=== PATIENT | female | born 1960 | race Two or more races ===

== ENCOUNTER 2020-09-22 21:55 | Emergency (ER) | payer OTHER ==
[~2020-09-22] VITALS: Ht 165.1 cm; Wt 71.0 kg
[2020-09-22] MEDS ORDERED: normal saline 1000ml 1,000 ML IV ONE (23:20)
[2020-09-22] MEDS ORDERED: CefTRIAXone 2gm/D5W 50ml BAG 50 ML IV ONE (23:20)
[2020-09-22] MEDS: ketorolac trometh. 30mg/ml inj. IV ONE ×2 (23:35→23:57)
[2020-09-22 23:49] LABS: BASOPHILS % (AUTO) 0.6 % (0-1); EOSINOPHILS % (AUTO) 0.1 % (0-6); HEMATOCRIT 37.8 % (35.0-45.0); HEMOGLOBIN 13.1 g/dl (12.0-16.0); MEAN CORPUSCULAR HEMOGLOBIN 31.7 PG (27.0-31.0); MEAN CORPUSCULAR HGB CONC 34.7 g/dL (33.0-36.5); MEAN CORPUSCULAR VOLUME 91.3 FL (78-98); MEAN PLATELET VOLUME 9.4 FL (7.4-10.4); MONOCYTES # (AUTO) 0.6 X10'3 (0-0.9); MONOCYTES % (AUTO) 8.7 % (2-12); NEUTROPHILS # (AUTO) 5.6 X10'3 (1.8-7.7); NEUTROPHILS % (AUTO) 76.6 % (42-75); PLATELET COUNT 171 X10'3 (140-440); RED BLOOD COUNT 4.14 X10'6 (4.20-5.60); RED CELL DISTRIBUTION WIDTH 13.8 % (11.5-14.5); WHITE BLOOD COUNT 7.3 X10'3 (4.5-11.0)
[2020-09-23 00:03] LABS: ALANINE AMINOTRANSFERASE 31 U/L (12-78); ALBUMIN 3.2 G/DL (3.4-5.0); ALBUMIN/GLOBULIN RATIO 0.9 (1.1-1.5); ALKALINE PHOSPHATASE 94 IU/L (46-116); ANION GAP 9 (8-16); ASPARTATE AMINO TRANSFERASE 23 U/L (10-37); BILIRUBIN,TOTAL 0.2 MG/DL (0.1-1.0); BLOOD UREA NITROGEN 12 MG/DL (7-18); BUN/CREATININE RATIO 14.8 (6.6-38.0); CALCIUM 8.3 MG/DL (8.5-10.1); CHLORIDE 98 MMOL/L (99-107); CREATININE 0.81 MG/DL (0.40-0.90); GLUCOSE 107 MG/DL (70-104); MAGNESIUM 1.6 MG/DL (1.5-2.4); POTASSIUM 3.1 MMOL/L (3.5-5.1); SODIUM 132 MMOL/L (135-145); TOTAL PROTEIN 6.8 G/DL (6.4-8.2); eGFR 72 ML/MIN
[2020-09-23 00:17] LABS: URINE HCG NEGATIVE (NEG)
[2020-09-23 00:23] LABS: CLARITY,URINE CLEAR (Clear); COLOR,URINE YELLOW (Yellow); GLUCOSE, URINE NEGATIVE (Neg); KETONES,URINE NEGATIVE (Neg); LEUKOCYTE ESTERASE ,URINE NEGATIVE (Neg); NITRITES, URINE NEGATIVE (Neg); OCCULT BLOOD,URINE SMALL (Neg); PROTEIN,URINE NEGATIVE (Neg); UA COLLECTION TYPE NON-SPECIFIED; UROBILINOGEN,URINE 0.2 E.U/dL (0.2-1.0)
[2020-09-23] MEDS ORDERED: potassium Cl 20 mEq SR tablet PO STA (00:24)
[2020-09-23] MEDS ORDERED: ondansetron 4mg rapidly disintigrating tab PO ONE (00:25)
[2020-09-23 00:34] LABS: BACTERIA,URINE NONE SEEN /HPF (Neg); RBC,URINE 0-2 /HPF (0-2); SQUAMOUS EPITHELIAL CELL,UR FEW /LPF (FEW); WBC,URINE 0-4 /HPF (0-4)
[2020-09-23 00:38] LABS: URINE AMPHETAMINE SCREEN NEGATIVE (Neg); URINE BARBITUATE SCREEN NEGATIVE (Neg); URINE BENZODIAZEPINES SCREEN NEGATIVE (Neg); URINE CANNABINOID SCREEN NEGATIVE (Neg); URINE COCAINE SCREEN NEGATIVE (Neg); URINE METHADONE SCREEN NEGATIVE (Neg); URINE OPIATE SCREEN NEGATIVE (Neg); URINE PHENCYCLIDINE SCREEN NEGATIVE (Neg)
[2020-09-23 01:01] VITALS: BP 134/58
== END 2020-09-23 01:05 | disposition home or self-care (01) ==
LOC: ER 21:57
DX: M79.10 Myalgia, unspecified site (principal); R30.0 Dysuria; Z87.448 Personal history of other diseases of urinary system
CPT/HCPCS: 36415; 71045; 80053; 80305; 81001; 81025; 83605; 83735; 84145; 85025; 87040; 87635; 93005; 96365; 99285; J0696; J7030; J1885

== ENCOUNTER 2020-09-27 07:20 | Inpatient (IN) | payer OTHER ==
[~2020-09-27] VITALS: Ht 162.6 cm; Wt 61.0 kg
[2020-09-27 09:05] LABS: BASOPHILS % (AUTO) 0.5 % (0-1); EOSINOPHILS % (AUTO) 0 % (0-6); HEMATOCRIT 35.3 % (35.0-45.0); HEMOGLOBIN 12.4 g/dl (12.0-16.0); LYMPHOCYTES # (AUTO) 0.3 X10'3 (1.1-4.8); LYMPHOCYTES % (AUTO) 5.7 % (21-51); MEAN CORPUSCULAR HEMOGLOBIN 31.5 PG (27.0-31.0); MEAN CORPUSCULAR HGB CONC 35.1 g/dL (33.0-36.5); MEAN CORPUSCULAR VOLUME 89.7 FL (78-98); MEAN PLATELET VOLUME 9.4 FL (7.4-10.4); MONOCYTES # (AUTO) 0.2 X10'3 (0-0.9); MONOCYTES % (AUTO) 4.1 % (2-12); NEUTROPHILS # (AUTO) 4.6 X10'3 (1.8-7.7); NEUTROPHILS % (AUTO) 89.7 % (42-75); PLATELET COUNT 149 X10'3 (140-440); RED BLOOD COUNT 3.93 X10'6 (4.20-5.60); RED CELL DISTRIBUTION WIDTH 14.2 % (11.5-14.5); WHITE BLOOD COUNT 5.2 X10'3 (4.5-11.0)
[2020-09-27 09:14] LABS: D-DIMER 0.62 MG/L FEU (0-0.50)
[2020-09-27 09:18] LABS: ALANINE AMINOTRANSFERASE 31 U/L (12-78); ALBUMIN 2.6 G/DL (3.4-5.0); ALBUMIN/GLOBULIN RATIO 0.7 (1.1-1.5); ALKALINE PHOSPHATASE 83 IU/L (46-116); ANION GAP 10 (8-16); ASPARTATE AMINO TRANSFERASE 39 U/L (10-37); BILIRUBIN,TOTAL 0.3 MG/DL (0.1-1.0); BLOOD UREA NITROGEN 8 MG/DL (7-18); CALCIUM 8.3 MG/DL (8.5-10.1); CHLORIDE 102 MMOL/L (99-107); CREATININE 0.73 MG/DL (0.40-0.90); GLUCOSE 110 MG/DL (70-104); MAGNESIUM 1.5 MG/DL (1.5-2.4); POTASSIUM 3.2 MMOL/L (3.5-5.1); SODIUM 135 MMOL/L (135-145); TOTAL CARBON DIOXIDE 23.5 MMOL/L (24-32); TOTAL PROTEIN 6.3 G/DL (6.4-8.2); eGFR 82 ML/MIN
[2020-09-27] MEDS ORDERED: potassium Cl 20 mEq SR tablet PO STA (09:59)
[2020-09-27] MEDS ORDERED: ondansetron/PF 4mg/2ml inj IV ONE (10:20)
[2020-09-27] MEDS ORDERED: dexamethasone sod phosphate 10mg/ml inj IV STA (10:27)
[2020-09-27] MEDS ORDERED: magnesium 4gm in 100ml NS 100 ML IV PRN (10:40)
[2020-09-27] MEDS ORDERED: potassium Cl 20 mEq SR tablet PO PRN (10:40)
[2020-09-27] MEDS ORDERED: acetaminophen 325mg tablet PO ONE (10:40)
[2020-09-27] MEDS ORDERED: HYDROcodone/acetaminophen 5mg/325mg tablet PO PRN (10:40)
[2020-09-27] MEDS ORDERED: mag hydrox/Alum hydrox/simeth 30ml oral suspension PO PRN (10:40)
[2020-09-27] MEDS ORDERED: potassium CL 10mEq/100ml bag 100 ML IV PRN ×2 (10:40)
[2020-09-27] MEDS ORDERED: magnesium hydroxide 30ml (MOM) UD suspension PO PRN (10:40)
[2020-09-27] MEDS ORDERED: acetaminophen 325mg tablet PO PRN (10:40)
[2020-09-27] MEDS ORDERED: HYDROcodone/acetaminophen 10/325mg tab PO PRN (10:40)
[2020-09-27] MEDS ORDERED: magnesium 2GM in 50ml NS 50 ML IV PRN (10:40)
[2020-09-27] MEDS ORDERED: iohexol 350MG/ML 100ml bottle IV ONE (10:56)
[2020-09-27 11:19] LABS: C-REACTIVE PROTEIN 8.54 MG/DL (0.0-0.5); FERRITIN 690 NG/ML (8-252); LACTATE DEHYDROGENASE 391 U/L (81-234)
[2020-09-27] MEDS ORDERED: NO HOME MEDS (11:22)
[2020-09-27] MEDS: normal saline 1000ml 1,000 ML IV SCH ×2 (11:28→19:45)
--- NOTE | 2020-09-27 11:28 | NUR ---
BACK FROM CT
--- NOTE | 2020-09-27 12:49 | NUR ---
received report from TRI ponce. awaiting patient arrival.
[2020-09-27 13:33] VITALS: BP 114/95
[2020-09-27] MEDS ORDERED: azithromycin 250mg tablet PO ONE (15:00)
[2020-09-27] MEDS ORDERED: CefTRIAXone/D5W-Rocephin 1gm 50 ML IV ONE (15:00)
--- NOTE | 2020-09-27 16:28 | NUR ---
patient's skin is intact. no open areas noted. was not able to bring another RN into the room for my assessment. Addendum: 09/27/20 at 1631 by Luciana Blackburn RN Amended: Links added.
[2020-09-27] MEDS: ALBUTEROL INHALER 1 PUFF/90 MCG INHALER IH PRN ×2 (16:53→22:12)
[2020-09-27] MEDS: potassium Cl 20 mEq SR tablet PO PRN (17:24)
[2020-09-27] MEDS: ondansetron/PF 4mg/2ml inj IV PRN (17:29)
[2020-09-27 18:00] VITALS: BP 130/63
--- NOTE | 2020-09-27 18:38 | NUR ---
Patient in room [facility] 341. I have received report from HERB BARTLETT and had the opportunity to ask questions and assume patient care.
--- NOTE | 2020-09-27 18:39 | NUR ---
Problems reprioritized. Patient report given, questions answered & plan of care reviewed with TRI Carranza.
[2020-09-27] MEDS: enoxaparin 40mg/0.4ml syringe SQ SCH (19:44)
[2020-09-27] MEDS: K and/or MAG REPLACEMENT MC SCH (20:00)
[2020-09-27] MEDS: guaiFENesin ER 600mg tablet PO SCH (23:06)
[2020-09-27 23:11] VITALS: BP 127/64
[2020-09-28] MEDS: ondansetron/PF 4mg/2ml inj IV PRN ×3 (02:34→17:42)
[2020-09-28] MEDS: ALBUTEROL INHALER 1 PUFF/90 MCG INHALER IH PRN ×4 (02:39→23:45)
[2020-09-28] MEDS ORDERED: LORazepam 0.5 MG tablet PO PRN (03:10)
[2020-09-28 05:03] LABS: BASOPHILS % (AUTO) 0.2 % (0-1); EOSINOPHILS % (AUTO) 0 % (0-6); HEMATOCRIT 32.5 % (35.0-45.0); HEMOGLOBIN 11.1 g/dl (12.0-16.0); LYMPHOCYTES # (AUTO) 0.3 X10'3 (1.1-4.8); LYMPHOCYTES % (AUTO) 6.4 % (21-51); MEAN CORPUSCULAR HEMOGLOBIN 30.8 PG (27.0-31.0); MEAN CORPUSCULAR HGB CONC 34.3 g/dL (33.0-36.5); MEAN CORPUSCULAR VOLUME 89.8 FL (78-98); MEAN PLATELET VOLUME 9.9 FL (7.4-10.4); MONOCYTES # (AUTO) 0.5 X10'3 (0-0.9); MONOCYTES % (AUTO) 10.3 % (2-12); NEUTROPHILS # (AUTO) 4.4 X10'3 (1.8-7.7); NEUTROPHILS % (AUTO) 83.1 % (42-75); PLATELET COUNT 148 X10'3 (140-440); RED BLOOD COUNT 3.61 X10'6 (4.20-5.60); RED CELL DISTRIBUTION WIDTH 14.1 % (11.5-14.5); WHITE BLOOD COUNT 5.3 X10'3 (4.5-11.0)
[2020-09-28 05:15] LABS: D-DIMER 0.38 MG/L FEU (0-0.50)
[2020-09-28 05:23] LABS: ALANINE AMINOTRANSFERASE 31 U/L (12-78); ALBUMIN 2.4 G/DL (3.4-5.0); ALBUMIN/GLOBULIN RATIO 0.7 (1.1-1.5); ALKALINE PHOSPHATASE 73 IU/L (46-116); ANION GAP 10 (8-16); ASPARTATE AMINO TRANSFERASE 43 U/L (10-37); BILIRUBIN,TOTAL 0.2 MG/DL (0.1-1.0); BLOOD UREA NITROGEN 8 MG/DL (7-18); BUN/CREATININE RATIO 10.4 (6.6-38.0); C-REACTIVE PROTEIN 5.75 MG/DL (0.0-0.5); CALCIUM 7.9 MG/DL (8.5-10.1); CHLORIDE 106 MMOL/L (99-107); CREATININE 0.77 MG/DL (0.40-0.90); GLUCOSE 129 MG/DL (70-104); MAGNESIUM 1.7 MG/DL (1.5-2.4); POTASSIUM 3.2 MMOL/L (3.5-5.1); SODIUM 139 MMOL/L (135-145); TOTAL PROTEIN 5.9 G/DL (6.4-8.2); eGFR 77 ML/MIN
--- NOTE | 2020-09-28 06:13 | NUR ---
Problems reprioritized. Patient report given, questions answered & plan of care reviewed with RANDOLPH BARTLETT.
--- NOTE | 2020-09-28 06:13 | NUR ---
Patient in room [facility] 341. I have received report from TRI Carranza and had the opportunity to ask questions and assume patient care.
[2020-09-28 07:52] VITALS: BP 132/76
[2020-09-28] MEDS: potassium Cl 20 mEq SR tablet PO PRN ×3 (07:59→17:36)
[2020-09-28] MEDS: guaiFENesin ER 600mg tablet PO SCH ×2 (07:59→20:08)
[2020-09-28] MEDS: CefTRIAXone/D5W-Rocephin 1gm 50 ML IV SCH (08:00)
[2020-09-28] MEDS: K and/or MAG REPLACEMENT MC SCH ×2 (08:00→20:00)
[2020-09-28] MEDS: azithromycin 250mg tablet PO SCH (08:00)
[2020-09-28] MEDS ORDERED: dexamethasone 4mg tablet PO SCH (08:00)
[2020-09-28] MEDS: normal saline 1000ml 1,000 ML IV SCH ×3 (08:04→20:39)
--- NOTE | 2020-09-28 08:19 | NUR ---
Patient refusing to have side rails up. Explained to patient safety purposes of side rails being up. Patient refusing to have any side rails up, not allowing for one side rail either.
--- NOTE | 2020-09-28 08:24 | NUR ---
Patient stating "can someone help me breathe? I feel like I can't breathe." Patient lying with head of bed flat on left side lying position on RA. SPO2% was 88%. Educated patient having HOB elevated would be helpful and educated patient relaxation breathing technique as patient appears to be anxious. Patient refusing to have HOB slightly elevated but sat up straight in bed to do breathing exercises. 2LNC placed and patient doing breathing exercise. SPO2% 92-93 on 2LNC. Patient offered ativan but refuses at this time. Patient states, " I just need to sleep. I haven't been able to sleep so I get shaky." WIll continue to monitor.
--- NOTE | 2020-09-28 09:27 | NUR ---
Patient up in room ambulating with no oxygen on. 88% on RA. Reminded patient to have o2 on as she desaturates to 88% when it is not on. Patient asking for tubing extension for O2 and IV. Extension tubing for IV and O2 cannula on. Patient continues to have O2 on and off. Again educated patient use of O2 nasal cannula. Currently 2LNC 92%. Will continue to monitor.
[2020-09-28 10:19] VITALS: BP 126/56
--- NOTE | 2020-09-28 13:02 | NUR ---
Patient again seen without oxygen tubing in nares instead she has it hanging from her ears as she is in the corner of the room going through her belongings. Patient spo2 87-88% on RA and appears to be SOB. Reinforced education to patient about correct use of nasal cannula for proper oxygenation saturation. Patient on 3LNC saturating at 94-95%. Will continue to monitor.
[2020-09-28] MEDS: acetaminophen 325mg tablet PO SCH ×2 (14:00→20:09)
--- NOTE | 2020-09-28 18:25 | NUR ---
Problems reprioritized. Patient report given, questions answered & plan of care reviewed with TRI Prado.
--- NOTE | 2020-09-28 18:50 | NUR ---
Patient in room [facility] 341. I have received report from Eliza BARTLETT and had the opportunity to ask questions and assume patient care.
[2020-09-28] MEDS: lactobacillus rhamnosus 10,000 MMU CELLS/CAPSULE PO SCH (20:08)
[2020-09-28] MEDS: enoxaparin 40mg/0.4ml syringe SQ SCH (20:12)
[2020-09-28 20:15] VITALS: BP 139/84
[2020-09-28 23:46] VITALS: BP 148/75
--- NOTE | 2020-09-29 00:04 | NUR ---
Patient does not want the tray removed incase she will want to eat. Addendum: 09/29/20 at 0005 by Eve Krishnan RN Amended: Links added.
[2020-09-29] MEDS: acetaminophen 325mg tablet PO SCH ×5 (02:00→19:07)
[2020-09-29] MEDS: ondansetron/PF 4mg/2ml inj IV PRN (02:42)
--- NOTE | 2020-09-29 03:50 | NUR ---
Patient is extremely anxious and would benefit from taking ativan, however, she refuses. Patient has to be constantly reminded to keep the mask on over her nose and mouth. Pt. also has to be reminded to keep NC in her nares . Earlier in shift pt. did desat to 77% while OOB in bathroom with NC in not in her nares, but went back up to 91% when NC placed in nares and breathing slowed down focusing on in thru the nose, out thru the mouth. Patient c/o pain to her lungs at the back but will not take pain medication. PIV has just infiltrated and pt. refuses to allow a new one to be initiated at this time.
[2020-09-29 05:35] LABS: BASOPHILS % (AUTO) 0.1 % (0-1); EOSINOPHILS % (AUTO) 0 % (0-6); HEMATOCRIT 34.7 % (35.0-45.0); HEMOGLOBIN 11.8 g/dl (12.0-16.0); LYMPHOCYTES # (AUTO) 0.5 X10'3 (1.1-4.8); LYMPHOCYTES % (AUTO) 3.4 % (21-51); MEAN CORPUSCULAR HEMOGLOBIN 30.8 PG (27.0-31.0); MEAN CORPUSCULAR VOLUME 90.6 FL (78-98); MEAN PLATELET VOLUME 9.1 FL (7.4-10.4); MONOCYTES # (AUTO) 0.6 X10'3 (0-0.9); MONOCYTES % (AUTO) 4.7 % (2-12); NEUTROPHILS % (AUTO) 91.8 % (42-75); PLATELET COUNT 219 X10'3 (140-440); RED BLOOD COUNT 3.83 X10'6 (4.20-5.60); RED CELL DISTRIBUTION WIDTH 14.3 % (11.5-14.5); WHITE BLOOD COUNT 13.1 X10'3 (4.5-11.0)
[2020-09-29 05:39] LABS: D-DIMER 0.96 MG/L FEU (0-0.50)
[2020-09-29 05:47] LABS: ALANINE AMINOTRANSFERASE 46 U/L (12-78); ALBUMIN 2.5 G/DL (3.4-5.0); ALBUMIN/GLOBULIN RATIO 0.6 (1.1-1.5); ALKALINE PHOSPHATASE 86 IU/L (46-116); ANION GAP 10 (8-16); ASPARTATE AMINO TRANSFERASE 72 U/L (10-37); BILIRUBIN,TOTAL 0.5 MG/DL (0.1-1.0); BLOOD UREA NITROGEN 10 MG/DL (7-18); BUN/CREATININE RATIO 13.5 (6.6-38.0); C-REACTIVE PROTEIN 8.12 MG/DL (0.0-0.5); CALCIUM 8.3 MG/DL (8.5-10.1); CHLORIDE 106 MMOL/L (99-107); CREATININE 0.74 MG/DL (0.40-0.90); GLUCOSE 104 MG/DL (70-104); SODIUM 140 MMOL/L (135-145); TOTAL PROTEIN 6.4 G/DL (6.4-8.2); eGFR 80 ML/MIN
--- NOTE | 2020-09-29 06:33 | NUR ---
Patient in room [facility] 341. I have received report from Eve BARTLETT and had the opportunity to ask questions and assume patient care. Patient with NO IV.
--- NOTE | 2020-09-29 06:51 | NUR ---
Problems reprioritized. Patient report given, questions answered & plan of care reviewed with Katy BARTLETT.
[2020-09-29] MEDS: K and/or MAG REPLACEMENT MC SCH ×2 (08:00→20:00)
[2020-09-29] MEDS ORDERED: dexamethasone 4mg/ml inj IV SCH (08:00)
[2020-09-29] MEDS: azithromycin 250mg tablet PO SCH (08:30)
[2020-09-29] MEDS: lactobacillus rhamnosus 10,000 MMU CELLS/CAPSULE PO SCH ×2 (08:30→19:07)
[2020-09-29] MEDS: guaiFENesin ER 600mg tablet PO SCH ×2 (08:30→19:07)
[2020-09-29] MEDS: CefTRIAXone/D5W-Rocephin 1gm 50 ML IV SCH (08:31)
[2020-09-29 09:05] VITALS: BP 149/70
--- NOTE | 2020-09-29 09:19 | NUR ---
Patient dropped all medications on the floor. Medications pulled again to administer to patient.
--- NOTE | 2020-09-29 12:15 | NUR ---
Patient talking on the phone with (therapist?) talking about controlling her breathing. Patient is calm, better from this morning.
[2020-09-29] MEDS: normal saline 1000ml 1,000 ML IV SCH (12:40)
--- NOTE | 2020-09-29 18:00 | NUR ---
Patient in room [facility] 341. I have received report from Katy BARTLETT and had the opportunity to ask questions and assume patient care.
--- NOTE | 2020-09-29 18:16 | NUR ---
Problems reprioritized. Patient report given, questions answered & plan of care reviewed with Anabella BARTLETT.
[2020-09-29] MEDS: enoxaparin 40mg/0.4ml syringe SQ SCH (19:10)
[2020-09-29] MEDS: ALBUTEROL INHALER 1 PUFF/90 MCG INHALER IH PRN (19:11)
[2020-09-29 20:00] VITALS: BP 155/74
--- NOTE | 2020-09-29 20:20 | NUR ---
went to answer call light and patient was was very anxious about her IV she said her legs were swelling up and she could feel her face swelling up also. She wanted me to turn her IV off and I told her i couldnt do it without an order and that I would ask. I called Dr. Tubbs and he said to put the order in to turn off the IV fluids
--- NOTE | 2020-09-29 21:53 | NUR ---
checked the patients O2 and it was 85 at 10L on high flow salter. I turned it up to 13L and it went up to 91 Will continue to monitor
--- NOTE | 2020-09-29 21:59 | NUR ---
patient was complaining that her room was to cold, yet she was out of her bed and her coat was off. I asked her to get int bed with her covers on and I would call engineering to turn the temp up.
--- NOTE | 2020-09-29 22:37 | NUR ---
checked patients sats and it was 85% on 13L, turned it up to 15L and her saturation is 92% will continue to monitor
[2020-09-30] VITALS: BP 133/86
--- NOTE | 2020-09-30 00:51 | NUR ---
Checked on patients sats and she was 75% on 15L. Had her taking long deep breaths got her up to 85%. Called Dr Tubbs he said to go to 20L. Paged respiratory they recommended a non re breather Dr Tubbs agreed, shes sating 91-94. Will continue to monitor
[2020-09-30] MEDS: acetaminophen 325mg tablet PO SCH ×4 (02:14→20:00)
--- NOTE | 2020-09-30 02:27 | NUR ---
respiratory came up and she put her on high flow salter and the re breather her sats are 94%
[2020-09-30 05:17] LABS: BASOPHILS % (AUTO) 0 % (0-1); EOSINOPHILS % (AUTO) 0 % (0-6); HEMATOCRIT 36.5 % (35.0-45.0); HEMOGLOBIN 12.4 g/dl (12.0-16.0); LYMPHOCYTES # (AUTO) 0.4 X10'3 (1.1-4.8); MEAN CORPUSCULAR HEMOGLOBIN 30.7 PG (27.0-31.0); MEAN CORPUSCULAR HGB CONC 33.8 g/dL (33.0-36.5); MEAN CORPUSCULAR VOLUME 90.8 FL (78-98); MEAN PLATELET VOLUME 9.3 FL (7.4-10.4); MONOCYTES # (AUTO) 0.8 X10'3 (0-0.9); MONOCYTES % (AUTO) 5.5 % (2-12); NEUTROPHILS # (AUTO) 12.9 X10'3 (1.8-7.7); NEUTROPHILS % (AUTO) 91.5 % (42-75); PLATELET COUNT 239 X10'3 (140-440); RED BLOOD COUNT 4.03 X10'6 (4.20-5.60); RED CELL DISTRIBUTION WIDTH 14.4 % (11.5-14.5); WHITE BLOOD COUNT 14.1 X10'3 (4.5-11.0)
[2020-09-30 05:22] LABS: ALANINE AMINOTRANSFERASE 44 U/L (12-78); ALBUMIN 2.5 G/DL (3.4-5.0); ALBUMIN/GLOBULIN RATIO 0.6 (1.1-1.5); ALKALINE PHOSPHATASE 107 IU/L (46-116); ANION GAP 10 (8-16); ASPARTATE AMINO TRANSFERASE 52 U/L (10-37); BILIRUBIN,TOTAL 0.4 MG/DL (0.1-1.0); BLOOD UREA NITROGEN 14 MG/DL (7-18); BUN/CREATININE RATIO 19.2 (6.6-38.0); C-REACTIVE PROTEIN 10.81 MG/DL (0.0-0.5); CALCIUM 8.5 MG/DL (8.5-10.1); CHLORIDE 107 MMOL/L (99-107); CREATININE 0.73 MG/DL (0.40-0.90); GLUCOSE 94 MG/DL (70-104); MAGNESIUM 2.3 MG/DL (1.5-2.4); POTASSIUM 3.8 MMOL/L (3.5-5.1); SODIUM 142 MMOL/L (135-145); TOTAL CARBON DIOXIDE 24.6 MMOL/L (24-32); TOTAL PROTEIN 6.7 G/DL (6.4-8.2); eGFR 82 ML/MIN
[2020-09-30 05:23] LABS: D-DIMER 7.68 MG/L FEU (0-0.50)
--- NOTE | 2020-09-30 06:20 | NUR ---
Received report from Anabella BARTLETT, [facility] care.
--- NOTE | 2020-09-30 06:38 | NUR ---
Problems reprioritized. Patient report given, questions answered & plan of care reviewed with Palmira BARTLETT.
[2020-09-30] MEDS ORDERED: REMDESIVIR 100MG inj. 200 MG in normal saline 100ml IV soln 100 ML IV ONE (07:50)
[2020-09-30 07:54] LABS: LACTATE DEHYDROGENASE 804 U/L (81-234)
[2020-09-30] MEDS: K and/or MAG REPLACEMENT MC SCH ×2 (08:00→20:00)
[2020-09-30 09:58] VITALS: BP 125/87
[2020-09-30] MEDS: guaiFENesin ER 600mg tablet PO SCH ×3 (10:03→20:36)
[2020-09-30] MEDS: lactobacillus rhamnosus 10,000 MMU CELLS/CAPSULE PO SCH ×2 (10:04→20:36)
[2020-09-30] MEDS: enoxaparin 60mg/0.6ml syringe SUBCUT SCH ×2 (10:04→20:37)
[2020-09-30] MEDS: furosemide 20 MG/2 ML vial IV SCH (10:04)
[2020-09-30] MEDS: methylPREDNISolone sod succ 125mg/2ml vial IV SCH ×2 (10:06→20:36)
[2020-09-30] MEDS: CefTRIAXone 2gm/D5W 50ml BAG 50 ML IV SCH (10:06)
[2020-09-30 11:08] VITALS: BP 144/76
--- NOTE | 2020-09-30 18:24 | NUR ---
Gave report to Daniela BARTLETT, transferred care.
--- NOTE | 2020-09-30 18:42 | NUR ---
Patient in room [facility] 341. I have received report from TRI Chavis and had the opportunity to ask questions and assume patient care.
[2020-09-30 20:31] VITALS: BP 154/74
--- NOTE | 2020-09-30 20:45 | NUR ---
Upon assessing pt in room, pt has nonrebreather at 15L and high flow NC at 10L, saturation 90-94%. Advised pt to discontinue nonrebreather for the night and pt refuses at this time. Stating, I would like to use it tonight. Pt is also very anxious and refuses Ativan PRN. Will continue to monitor patient.
[2020-09-30] MEDS ORDERED: guaiFENesin ER 600mg tablet PO ONE (23:10)
[2020-10-01] VITALS: BP 145/66
[2020-10-01] MEDS: acetaminophen 325mg tablet PO SCH ×4 (01:58→20:00)
[2020-10-01] MEDS: ondansetron/PF 4mg/2ml inj IV PRN (03:12)
--- NOTE | 2020-10-01 06:12 | NUR ---
Problems reprioritized. Patient report given, questions answered & plan of care reviewed with TRI Brandon.
--- NOTE | 2020-10-01 06:22 | NUR ---
Patient in room [facility] 341. I have received report from TRI Suarez and had the opportunity to ask questions and assume patient care.
[2020-10-01 08:00] VITALS: BP 126/68
[2020-10-01] MEDS: K and/or MAG REPLACEMENT MC SCH ×2 (08:00→20:00)
[2020-10-01 08:11] LABS: BASOPHILS % (AUTO) 0.1 % (0-1); EOSINOPHILS % (AUTO) 0 % (0-6); HEMATOCRIT 33.2 % (35.0-45.0); HEMOGLOBIN 11.3 g/dl (12.0-16.0); LYMPHOCYTES # (AUTO) 0.3 X10'3 (1.1-4.8); LYMPHOCYTES % (AUTO) 2.1 % (21-51); MEAN CORPUSCULAR HEMOGLOBIN 30.5 PG (27.0-31.0); MEAN CORPUSCULAR HGB CONC 33.9 g/dL (33.0-36.5); MEAN CORPUSCULAR VOLUME 89.8 FL (78-98); MEAN PLATELET VOLUME 8.9 FL (7.4-10.4); MONOCYTES # (AUTO) 0.5 X10'3 (0-0.9); MONOCYTES % (AUTO) 4.1 % (2-12); NEUTROPHILS # (AUTO) 12.2 X10'3 (1.8-7.7); NEUTROPHILS % (AUTO) 93.7 % (42-75); PLATELET COUNT 227 X10'3 (140-440); RED CELL DISTRIBUTION WIDTH 13.8 % (11.5-14.5)
[2020-10-01 08:20] LABS: D-DIMER 4.21 MG/L FEU (0-0.50)
[2020-10-01 08:30] LABS: ALANINE AMINOTRANSFERASE 36 U/L (12-78); ALBUMIN 2.1 G/DL (3.4-5.0); ALBUMIN/GLOBULIN RATIO 0.6 (1.1-1.5); ALKALINE PHOSPHATASE 100 IU/L (46-116); ANION GAP 9 (8-16); ASPARTATE AMINO TRANSFERASE 33 U/L (10-37); BILIRUBIN,TOTAL 0.4 MG/DL (0.1-1.0); BLOOD UREA NITROGEN 15 MG/DL (7-18); BUN/CREATININE RATIO 21.4 (6.6-38.0); C-REACTIVE PROTEIN 10.44 MG/DL (0.0-0.5); CALCIUM 8.3 MG/DL (8.5-10.1); CHLORIDE 105 MMOL/L (99-107); GLUCOSE 115 MG/DL (70-104); MAGNESIUM 2.2 MG/DL (1.5-2.4); POTASSIUM 3.4 MMOL/L (3.5-5.1); SODIUM 140 MMOL/L (135-145); TOTAL CARBON DIOXIDE 25.7 MMOL/L (24-32); TOTAL PROTEIN 5.9 G/DL (6.4-8.2); eGFR 86 ML/MIN
[2020-10-01] MEDS: REMDESIVIR 100MG inj. 100 MG in normal saline 100ml IV soln 100 ML IV SCH (08:30)
[2020-10-01] MEDS: methylPREDNISolone sod succ 125mg/2ml vial IV SCH ×2 (08:30→21:02)
[2020-10-01] MEDS: furosemide 20 MG/2 ML vial IV SCH (08:30)
[2020-10-01] MEDS: lactobacillus rhamnosus 10,000 MMU CELLS/CAPSULE PO SCH ×2 (08:31→21:00)
[2020-10-01] MEDS: guaiFENesin ER 600mg tablet PO SCH (08:31)
[2020-10-01] MEDS: enoxaparin 60mg/0.6ml syringe SUBCUT SCH (08:33)
[2020-10-01 09:34] LABS: LACTATE DEHYDROGENASE 519 U/L (81-234)
[2020-10-01] MEDS ORDERED: metoclopramide 5 mg/ml inj IV PRN (11:50)
[2020-10-01] MEDS ORDERED: potassium CL 10mEq/100ml bag 100 ML IV PRN (15:40)
[2020-10-01] MEDS ORDERED: potassium Cl 20 mEq SR tablet PO PRN (15:40)
[2020-10-01] MEDS ORDERED: magnesium 4gm in 100ml NS 100 ML IV PRN (15:40)
[2020-10-01] MEDS ORDERED: magnesium Cl slow-release 64mg tablet PO PRN (15:40)
--- NOTE | 2020-10-01 15:46 | NUR ---
ULTRASOUND GUIDED 5F DUAL LUMEN MIDLINE PLACEMENT TO RIGHT BASILIC VEIN X'S 1 ATTEMPT WITH SUCCESS TIP ENDS MID-AXILLARY, BOTH LUMENS DRAW BLOOD AND FLUSH WITHOUT DIFFICULTY. JOAHNNY PICC RN
--- NOTE | 2020-10-01 15:47 | NUR ---
LAB NOTIFIED LINE PLACED IN PT PER THEIR REQUEST. JOHANNY PICC TRI
[2020-10-01] MEDS: CefTRIAXone 2gm/D5W 50ml BAG 50 ML IV SCH (15:53)
[2020-10-01] MEDS: potassium Cl 20 mEq SR tablet PO PRN ×2 (16:00→21:03)
--- NOTE | 2020-10-01 18:33 | NUR ---
Pt anxious, requesting attention and frequent care throughout the day. Continues on High flow O2 N/C and non-rebreather mask. Encouraged pt to use non rebreather only when experiencing SOB, Pt was non compliant. O2sat 94-96 while at rest. decreased to mid 80s with exertion. Patient report given, questions answered & plan of care reviewed with TRI Hendrix.
[2020-10-01 19:30] VITALS: BP 137/85
--- NOTE | 2020-10-01 20:20 | NUR ---
in pt's room x45 min attending to her emotional & physical needs; resp rate increasing when anxious & watching sats decreasing to in lower 80's; (refuses ativan); pt states Dr Moraes told her to only use the nonrebreather when out of bed; pt states, even without activity, she needs to use both the rebreather mask (set at 15 liters) and the salter NC (set at 10); pt states MD aware she is using both
[2020-10-02 00:15] VITALS: BP 142/90
--- NOTE | 2020-10-02 00:15 | NUR ---
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
[2020-10-02] MEDS: ALBUTEROL INHALER 1 PUFF/90 MCG INHALER IH PRN ×2 (01:16→21:00)
--- NOTE | 2020-10-02 01:30 | NUR ---
pt states she feels better after resp tX (resp therapist increased her salter NC to 15); also has the nonrebreather at 15 liters; sats now 95-97
[2020-10-02] MEDS: acetaminophen 325mg tablet PO SCH ×4 (02:00→19:57)
[2020-10-02 06:29] LABS: BASOPHILS % (AUTO) 0.1 % (0-1); EOSINOPHILS % (AUTO) 0 % (0-6); HEMATOCRIT 33.8 % (35.0-45.0); HEMOGLOBIN 11.5 g/dl (12.0-16.0); LYMPHOCYTES # (AUTO) 0.2 X10'3 (1.1-4.8); LYMPHOCYTES % (AUTO) 1.1 % (21-51); MEAN CORPUSCULAR HEMOGLOBIN 30.6 PG (27.0-31.0); MEAN CORPUSCULAR HGB CONC 34.1 g/dL (33.0-36.5); MEAN CORPUSCULAR VOLUME 89.8 FL (78-98); MONOCYTES # (AUTO) 0.7 X10'3 (0-0.9); MONOCYTES % (AUTO) 3.6 % (2-12); NEUTROPHILS # (AUTO) 18.2 X10'3 (1.8-7.7); NEUTROPHILS % (AUTO) 95.2 % (42-75); PLATELET COUNT 211 X10'3 (140-440); RED BLOOD COUNT 3.77 X10'6 (4.20-5.60); RED CELL DISTRIBUTION WIDTH 13.9 % (11.5-14.5); WHITE BLOOD COUNT 19.1 X10'3 (4.5-11.0)
--- NOTE | 2020-10-02 06:45 | NUR ---
pt able to sleep at intervals with resp average 24-26; pt more relaxed after resp treatment; shift change report given to TRI Diego
[2020-10-02 06:52] LABS: ALANINE AMINOTRANSFERASE 32 U/L (12-78); ALBUMIN 2.2 G/DL (3.4-5.0); ALBUMIN/GLOBULIN RATIO 0.6 (1.1-1.5); ALKALINE PHOSPHATASE 94 IU/L (46-116); ANION GAP 9 (8-16); ASPARTATE AMINO TRANSFERASE 25 U/L (10-37); BILIRUBIN,TOTAL 0.4 MG/DL (0.1-1.0); BLOOD UREA NITROGEN 19 MG/DL (7-18); BUN/CREATININE RATIO 27.5 (6.6-38.0); C-REACTIVE PROTEIN 5.44 MG/DL (0.0-0.5); CALCIUM 8.2 MG/DL (8.5-10.1); CHLORIDE 105 MMOL/L (99-107); CREATININE 0.69 MG/DL (0.40-0.90); GLUCOSE 127 MG/DL (70-104); LACTATE DEHYDROGENASE 436 U/L (81-234); POTASSIUM 3.6 MMOL/L (3.5-5.1); SODIUM 141 MMOL/L (135-145); TOTAL CARBON DIOXIDE 26.8 MMOL/L (24-32); eGFR 87 ML/MIN
--- NOTE | 2020-10-02 07:09 | NUR ---
Patient in room [facility] 341. I have received report from Pat RN and had the opportunity to ask questions and assume patient care.
[2020-10-02] MEDS ORDERED: enoxaparin 40mg/0.4ml syringe SUBCUT SCH (08:00)
[2020-10-02] MEDS: K and/or MAG REPLACEMENT MC SCH ×2 (08:00→20:00)
[2020-10-02] MEDS: REMDESIVIR 100MG inj. 100 MG in normal saline 100ml IV soln 100 ML IV SCH (10:03)
[2020-10-02] MEDS: furosemide 20 MG/2 ML vial IV SCH (10:04)
[2020-10-02] MEDS: CefTRIAXone 2gm/D5W 50ml BAG 50 ML IV SCH (10:04)
[2020-10-02] MEDS: methylPREDNISolone sod succ 125mg/2ml vial IV SCH ×2 (10:04→19:46)
[2020-10-02] MEDS: enoxaparin 40mg/0.4ml syringe SUBCUT SCH ×2 (10:06→19:53)
[2020-10-02] MEDS: lactobacillus rhamnosus 10,000 MMU CELLS/CAPSULE PO SCH ×2 (10:06→19:49)
[2020-10-02 10:32] VITALS: BP 143/69
--- NOTE | 2020-10-02 12:40 | NUR ---
Initial: Pt admit DX COVID-19 PNA w/ anxiety per MD note. PO overall poor on regular diet ~25-49% meals not meeting needs. Likely to tolerating liquid ONS better; RD recommended ensure enlive TIDWM. MD notified. LBM 09/30 w/ diarrhea documented this entire admit and nausea yesterday also likely to impact PO. Lactate dehydrogenase down to 436 from 804 as well as CRP down to 5.44 from 10.44 prior. Will continue to monitor for additional protein/kcal needs this admit. Rec: 1. continue regular diet; encourage PO 2. ensure enlive TIDWM 3. bowel care per rx; if diarrhea persists consider anti-diarrheal 4. scaled wt this admit Addendum: 10/02/20 at [address] Amended: Links added.
--- NOTE | 2020-10-02 18:26 | NUR ---
Problems reprioritized. Patient report given, questions answered & plan of care reviewed with Patricia Gomez Rn.
--- NOTE | 2020-10-02 18:30 | NUR ---
Patient in room [facility] 341. I have received report from PARISH BARTLETT and had the opportunity to ask questions and assume patient care.
[2020-10-02] MEDS ORDERED: ibuprofen tablet 400 MG TABLET PO PRN (19:15)
[2020-10-02] MEDS ORDERED: bisacodyl 10mg suppository rectal RC PRN (19:15)
[2020-10-02 20:00] VITALS: BP 129/76
[2020-10-03] VITALS: BP 149/64
[2020-10-03] MEDS: acetaminophen 325mg tablet PO SCH ×4 (02:00→20:00)
--- NOTE | 2020-10-03 06:30 | NUR ---
Problems reprioritized. Patient report given, questions answered & plan of care reviewed with COURTNEY BARTLETT.
[2020-10-03] MEDS: K and/or MAG REPLACEMENT MC SCH ×2 (08:00→20:00)
[2020-10-03 08:49] LABS: C-REACTIVE PROTEIN 3.2 MG/DL (0.0-0.5)
[2020-10-03 08:54] LABS: D-DIMER 6.65 MG/L FEU (0-0.50)
[2020-10-03] MEDS: REMDESIVIR 100MG inj. 100 MG in normal saline 100ml IV soln 100 ML IV SCH (09:17)
[2020-10-03] MEDS: methylPREDNISolone sod succ 125mg/2ml vial IV SCH ×2 (09:18→21:21)
[2020-10-03] MEDS: furosemide 20 MG/2 ML vial IV SCH (09:18)
[2020-10-03] MEDS: lactobacillus rhamnosus 10,000 MMU CELLS/CAPSULE PO SCH ×2 (09:18→21:21)
[2020-10-03] MEDS: enoxaparin 40mg/0.4ml syringe SUBCUT SCH ×2 (09:19→21:22)
[2020-10-03 09:29] VITALS: BP 147/73
[2020-10-03] MEDS: CefTRIAXone 2gm/D5W 50ml BAG 50 ML IV SCH (11:22)
[2020-10-03 11:33] VITALS: BP 146/72
--- NOTE | 2020-10-03 18:20 | NUR ---
Problems reprioritized. Patient report given, questions answered & plan of care reviewed with GATO HOSKINS RN.
--- NOTE | 2020-10-03 18:30 | NUR ---
Patient in room [facility] 341. I have received report from COURTNEY BARTLETT and had the opportunity to ask questions and assume patient care.
[2020-10-03 20:00] VITALS: BP 126/58
[2020-10-04] MEDS: acetaminophen 325mg tablet PO SCH ×3 (02:00→14:00)
[2020-10-04 05:38] LABS: D-DIMER 3.18 MG/L FEU (0-0.50)
[2020-10-04 05:45] LABS: BASOPHILS % (AUTO) 0.1 % (0-1); EOSINOPHILS % (AUTO) 0 % (0-6); HEMATOCRIT 33.2 % (35.0-45.0); HEMOGLOBIN 11.3 g/dl (12.0-16.0); LYMPHOCYTES # (AUTO) 0.3 X10'3 (1.1-4.8); LYMPHOCYTES % (AUTO) 1.8 % (21-51); MEAN CORPUSCULAR HEMOGLOBIN 30.7 PG (27.0-31.0); MEAN CORPUSCULAR HGB CONC 34.2 g/dL (33.0-36.5); MEAN CORPUSCULAR VOLUME 89.6 FL (78-98); MEAN PLATELET VOLUME 9.3 FL (7.4-10.4); MONOCYTES # (AUTO) 0.4 X10'3 (0-0.9); NEUTROPHILS # (AUTO) 13.9 X10'3 (1.8-7.7); NEUTROPHILS % (AUTO) 95.1 % (42-75); PLATELET COUNT 211 X10'3 (140-440); WHITE BLOOD COUNT 14.6 X10'3 (4.5-11.0)
[2020-10-04 05:51] LABS: ALBUMIN 2.2 G/DL (3.4-5.0); ANION GAP 5 (8-16); BLOOD UREA NITROGEN 20 MG/DL (7-18); BUN/CREATININE RATIO 26.3 (6.6-38.0); C-REACTIVE PROTEIN 2.18 MG/DL (0.0-0.5); CHLORIDE 106 MMOL/L (99-107); CREATININE 0.76 MG/DL (0.40-0.90); GLUCOSE 124 MG/DL (70-104); LACTATE DEHYDROGENASE 357 U/L (81-234); MAGNESIUM 2.1 MG/DL (1.5-2.4); POTASSIUM 4.2 MMOL/L (3.5-5.1); SODIUM 143 MMOL/L (135-145); TOTAL CARBON DIOXIDE 32.1 MMOL/L (24-32); eGFR 78 ML/MIN
--- NOTE | 2020-10-04 06:30 | NUR ---
Problems reprioritized. Patient report given, questions answered & plan of care reviewed with CLAU BARTLETT.
--- NOTE | 2020-10-04 07:00 | NUR ---
Patient in room [facility] 341. I have received report from GATO HOSKINS RN and had the opportunity to ask questions and assume patient care.
[2020-10-04] MEDS: K and/or MAG REPLACEMENT MC SCH ×2 (08:00→19:05)
[2020-10-04] MEDS: furosemide 20 MG/2 ML vial IV SCH (08:00)
[2020-10-04 09:12] VITALS: BP 138/53
[2020-10-04] MEDS: REMDESIVIR 100MG inj. 100 MG in normal saline 100ml IV soln 100 ML IV SCH (09:15)
[2020-10-04] MEDS: methylPREDNISolone sod succ 125mg/2ml vial IV SCH ×2 (09:16→21:19)
[2020-10-04] MEDS: lactobacillus rhamnosus 10,000 MMU CELLS/CAPSULE PO SCH ×2 (09:16→21:20)
[2020-10-04] MEDS: enoxaparin 40mg/0.4ml syringe SUBCUT SCH ×2 (09:21→21:20)
[2020-10-04 12:59] VITALS: BP 127/69
--- NOTE | 2020-10-04 18:47 | NUR ---
Problems reprioritized. Patient report given, questions answered & plan of care reviewed with TRI MEDINA.
--- NOTE | 2020-10-04 18:55 | NUR ---
Patient in room [facility] 341. I have received report from Martine Miranda RN and had the opportunity to ask questions and assume patient care.
[2020-10-04] MEDS: benzocaine/menthol oral lozeng 1 EACH BOX MM PRN (21:21)
[2020-10-04 21:29] VITALS: BP 126/84
--- NOTE | 2020-10-05 00:15 | NUR ---
Pt refuses midnight vitals, stating that she would like to rest tonight.
[2020-10-05] MEDS: benzocaine/menthol oral lozeng 1 EACH BOX MM PRN ×3 (05:25→19:42)
[2020-10-05 05:46] LABS: D-DIMER 2.95 MG/L FEU (0-0.50)
[2020-10-05 05:49] LABS: BASOPHILS % (AUTO) 0.1 % (0-1); EOSINOPHILS % (AUTO) 0 % (0-6); HEMATOCRIT 34.2 % (35.0-45.0); HEMOGLOBIN 11.7 g/dl (12.0-16.0); LYMPHOCYTES # (AUTO) 0.3 X10'3 (1.1-4.8); MEAN CORPUSCULAR HEMOGLOBIN 31.4 PG (27.0-31.0); MEAN CORPUSCULAR HGB CONC 34.2 g/dL (33.0-36.5); MEAN CORPUSCULAR VOLUME 91.6 FL (78-98); MEAN PLATELET VOLUME 9.4 FL (7.4-10.4); MONOCYTES # (AUTO) 0.5 X10'3 (0-0.9); MONOCYTES % (AUTO) 2.8 % (2-12); NEUTROPHILS # (AUTO) 16.1 X10'3 (1.8-7.7); NEUTROPHILS % (AUTO) 95.1 % (42-75); PLATELET COUNT 256 X10'3 (140-440); RED BLOOD COUNT 3.73 X10'6 (4.20-5.60); RED CELL DISTRIBUTION WIDTH 13.4 % (11.5-14.5)
[2020-10-05 05:54] LABS: ALBUMIN 2.2 G/DL (3.4-5.0); ANION GAP 3 (8-16); BLOOD UREA NITROGEN 22 MG/DL (7-18); C-REACTIVE PROTEIN 1.14 MG/DL (0.0-0.5); CALCIUM 8.7 MG/DL (8.5-10.1); CHLORIDE 107 MMOL/L (99-107); CREATININE 0.71 MG/DL (0.40-0.90); GLUCOSE 130 MG/DL (70-104); LACTATE DEHYDROGENASE 321 U/L (81-234); POTASSIUM 4.9 MMOL/L (3.5-5.1); SODIUM 142 MMOL/L (135-145); TOTAL CARBON DIOXIDE 32.1 MMOL/L (24-32); eGFR 84 ML/MIN
--- NOTE | 2020-10-05 06:27 | NUR ---
Problems reprioritized. Patient report given, questions answered & plan of care reviewed with TRI Souza.
--- NOTE | 2020-10-05 06:30 | NUR ---
Patient in room [facility] 341. I have received report from TRI Suarez and had the opportunity to ask questions and assume patient care.
[2020-10-05] MEDS: K and/or MAG REPLACEMENT MC SCH ×2 (08:00→19:19)
[2020-10-05] MEDS: furosemide 20 MG/2 ML vial IV SCH (08:00)
[2020-10-05 09:00] VITALS: BP 120/70
[2020-10-05] MEDS: methylPREDNISolone sod succ 125mg/2ml vial IV SCH ×2 (09:02→19:41)
[2020-10-05] MEDS: lactobacillus rhamnosus 10,000 MMU CELLS/CAPSULE PO SCH ×2 (09:02→19:42)
[2020-10-05] MEDS: enoxaparin 40mg/0.4ml syringe SUBCUT SCH ×2 (09:03→19:42)
--- NOTE | 2020-10-05 09:31 | NUR ---
In to assess patient and bring her medications. Patient was called prior to nurse coming in to see what all she needed. patient stated that the dressing on her midline was coming off. Patient was informed that the dressing would be changed. When in the room patient midline dressing was coming off and patient was messing with it. Patient was informed and educated that the midline can be a risk factor for infection if not treated properly. Patient stated an understanding. Prior the the sterile dressing change that patient was educated in the steps that were going to be taken during the procedure and patient was asked kindly to put her mask on so that we could begin. Patient agreed. After removing the old dressing and donning sterile gloves cleaning of the midline began. Patient continuously touched the catheter despite being asked to not touch it due to infection risk. Patient would nod in a agreement and say "sorry" but then try touching again. Patient then took a napkin off of her tray and began "dabbing the wetness away". Patient was asked to stop because the napkin is not sterile and the seriousness of the infection risk was reiterated to the patient. Patient was asked firmly to stop. Patient again agreed and said sorry. Patient asked if she could have gloves so that she could "help". Nurse explained to the patient that help was appreciated but not needed. Patient huffed and removed her mask to blow on the insertion site. Patient was again told that she isn't supposed to be doing that. The site was cleaned as much as possible and dressing was changed.
[2020-10-05 13:25] VITALS: BP 125/77
[2020-10-05 14:21] LABS: ABG BASE EXCESS 3.2 mmol/L (-2.0-2.0); ABG OXYGEN SATURATION 98.3 % (94-97); ABG PCO2 (T) 38.5 mmHg (32.0-45.0); ABG PO2 (T) 122.7 mmHg (75.0-100.0); ALLEN'S TEST POSITIVE; FCOHb 0.3 % (0.0-3.9); FLOW 10 L/min; FMetHb 0.3 % (0.0-1.5); FO2Hb 97.7 % (94-97); TOTAL HEMOGLOBIN 15.1 G/dl (12.0-16.0)
--- NOTE | 2020-10-05 15:31 | NUR ---
Reassessment: Pt PO improved to 75-100% avg meals past 2 days meeting needs. Pt feeling more comfortable per MD note. LBM 10/02. ONS not verified at this time. Will continue to monitor for additional protein needs. Rec: 1. continue regular diet; encourage PO 2. ensure enlive TIDWM 3. bowel care per rx 4. scaled wt this admit Addendum: 10/05/20 at [address] Amended: Links added.
[2020-10-05 18:00] VITALS: BP_SYST 156
--- NOTE | 2020-10-05 18:12 | NUR ---
Patient in room [facility] 341. I have received report from TRI Souza and had the opportunity to ask questions and assume patient care.
--- NOTE | 2020-10-05 18:21 | NUR ---
Problems reprioritized. Patient report given, questions answered & plan of care reviewed with TRI Suarez.
[2020-10-05 19:50] VITALS: BP 137/75
[2020-10-06 05:24] VITALS: BP 156/72
--- NOTE | 2020-10-06 05:46 | NUR ---
Upon assessing pt and performing rounding, pt is resting comfortably on her left side without any distress and SOB. Vital sign performed. The nares of the high flow nasal tubing has been displaced and is currently resting below the patient's nostril. Pt's oxygen saturation is 99% room air. Will continue to monitor patient.
--- NOTE | 2020-10-06 06:12 | NUR ---
Problems reprioritized. Patient report given, questions answered & plan of care reviewed with TRI Souza.
--- NOTE | 2020-10-06 06:26 | NUR ---
Patient in room [facility] 341. I have received report from TRI Suarez and had the opportunity to ask questions and assume patient care.
[2020-10-06] MEDS: K and/or MAG REPLACEMENT MC SCH ×2 (07:04→20:00)
[2020-10-06] MEDS: furosemide 20 MG/2 ML vial IV SCH (07:06)
--- NOTE | 2020-10-06 09:05 | NUR ---
F/u 10/06: Dietary TC pt requesting additional food "always hungry" per nursing; will send double proteins BIDLD for satiety. Rec: 1. continue regular diet; double proteins BIDLD since pt requesting additional foods 2. ensure enlive TIDWM; consider stopping IF adequate PO persists w/ double proteins 3. bowel care per rx 4. scaled wt this admit Addendum: 10/06/20 at [address] Amended: Links added.
[2020-10-06 09:36] VITALS: BP 119/62
[2020-10-06] MEDS: methylPREDNISolone sod succ 125mg/2ml vial IV SCH (09:39)
[2020-10-06] MEDS: enoxaparin 40mg/0.4ml syringe SUBCUT SCH ×2 (09:40→19:55)
--- NOTE | 2020-10-06 09:58 | NUR ---
In to assess patient and bring in medications. Patient stated that Dr. Choe was in to see her and told her that she could adjust her own oxygen as needed. Patient was being switched from the nasal canula high flow to the regular nasal cannula. Patient was very anxious about the switch because she stated, "Dr. Choe said I'm in charge of my oxygen and this has to be approved with a doctor. Patient was educated about the switch and the Dr. Moraes asked us to change her cannula to the regular one in order to be able to transition her home. Patient stated an understanding. Patient was also educated about adjusting her oxygen on her own. It was explained that oxygen is a medication and should not be taken lightly. Patient was also asked to inform the nurse when she adjusts her oxygen and to not increase it without talking to the nurse. Patient agreed.
[2020-10-06] MEDS: lactobacillus rhamnosus 10,000 MMU CELLS/CAPSULE PO SCH ×2 (10:50→19:54)
--- NOTE | 2020-10-06 11:01 | NUR ---
O2 Sat at rest on room air: 87% If below 89%: Recovery O2 Sat at rest on: 5 LPM: 95% via nasal cannula No further documentation is necessary.
[2020-10-06 13:27] VITALS: BP 124/70
[2020-10-06 15:37] LABS: BASOPHILS % (AUTO) 0 % (0-1); EOSINOPHILS % (AUTO) 0.1 % (0-6); HEMATOCRIT 35.4 % (35.0-45.0); LYMPHOCYTES # (AUTO) 0.4 X10'3 (1.1-4.8); MEAN CORPUSCULAR HEMOGLOBIN 30.8 PG (27.0-31.0); MEAN CORPUSCULAR HGB CONC 33.9 g/dL (33.0-36.5); MEAN CORPUSCULAR VOLUME 90.9 FL (78-98); MEAN PLATELET VOLUME 9.2 FL (7.4-10.4); MONOCYTES # (AUTO) 0.7 X10'3 (0-0.9); MONOCYTES % (AUTO) 3.4 % (2-12); NEUTROPHILS # (AUTO) 19.2 X10'3 (1.8-7.7); NEUTROPHILS % (AUTO) 94.5 % (42-75); PLATELET COUNT 314 X10'3 (140-440); WHITE BLOOD COUNT 20.3 X10'3 (4.5-11.0)
[2020-10-06 15:47] LABS: D-DIMER 3.08 MG/L FEU (0-0.50)
[2020-10-06 15:55] LABS: ALBUMIN 2.3 G/DL (3.4-5.0); ANION GAP 9 (8-16); BLOOD UREA NITROGEN 22 MG/DL (7-18); BUN/CREATININE RATIO 30.1 (6.6-38.0); CHLORIDE 102 MMOL/L (99-107); CREATININE 0.73 MG/DL (0.40-0.90); LACTATE DEHYDROGENASE 258 U/L (81-234); POTASSIUM 4.2 MMOL/L (3.5-5.1); SODIUM 141 MMOL/L (135-145); TOTAL CARBON DIOXIDE 30.3 MMOL/L (24-32); eGFR 82 ML/MIN
[2020-10-06 16:01] LABS: GLUCOSE 137 MG/DL (70-104)
--- NOTE | 2020-10-06 18:00 | NUR ---
Patient in room [facility] 341. I have received report from Libby BARTLETT and had the opportunity to ask questions and assume patient care.
--- NOTE | 2020-10-06 18:15 | NUR ---
Problems reprioritized. Patient report given, questions answered & plan of care reviewed with TRI Kyle.
[2020-10-06] MEDS: methylPREDNISolone sod succ/PF 40mg inj. IV SCH (19:54)
[2020-10-06 21:38] VITALS: BP 139/67
--- NOTE | 2020-10-07 00:02 | NUR ---
patient refused midnight vitals, she wanted to sleep through the night
--- NOTE | 2020-10-07 06:27 | NUR ---
Problems reprioritized. Patient report given, questions answered & plan of care reviewed with Edwina BARTLETT.
--- NOTE | 2020-10-07 06:29 | NUR ---
Patient in room [facility] 341. I have received report from rene coffey and had the opportunity to ask questions and assume patient care.
[2020-10-07] MEDS ORDERED: DEC4T PO (07:25)
[2020-10-07] MEDS: K and/or MAG REPLACEMENT MC SCH (08:00)
[2020-10-07] MEDS: methylPREDNISolone sod succ/PF 40mg inj. IV SCH (08:33)
[2020-10-07] MEDS: enoxaparin 40mg/0.4ml syringe SUBCUT SCH (08:34)
[2020-10-07] MEDS: lactobacillus rhamnosus 10,000 MMU CELLS/CAPSULE PO SCH (08:34)
[2020-10-07 08:53] VITALS: BP 123/77
--- NOTE | 2020-10-07 11:09 | NUR ---
patient seen by Dr Moraes is for discharge. Oxygen delivered to patient. dc instructions given to patient, [facility] with regards need to continue isolation for covid until Oct 13. . patient remains on 5L o2 via nc. O2 sats 95%. awaiting ride.
--- NOTE | 2020-10-07 14:19 | NUR ---
patient DC home via private vehicle home with son in stable condition 1245hrs
--- NOTE | 2020-10-07 15:05 | NUR ---
PAGER ID: [phone] MESSAGE: [facility] [phone] Re: Kyree [phone] Please call re: vascular study
== END 2020-10-07 12:45 | disposition home or self-care (01) | DRG 177 ==
LOC: ER 07:21 → ED HOLD 10:40 → SUR 3N 13:03
PROVIDERS: ADMIT Family Medicine; ATTEND Family Medicine
PROC: XW033E5 Introduction of Remdesivir Anti-infective into Peripheral Vein, Percutaneous Approach, New Technology Group 5 (ICD-10-PCS; principal; 2020-09-30)
DX: U07.1 COVID-19 (principal); J12.89 Other viral pneumonia; J96.01 Acute respiratory failure with hypoxia; E87.6 Hypokalemia; I50.812 Chronic right heart failure; J45.909 Unspecified asthma, uncomplicated; Z87.891 Personal history of nicotine dependence
CPT/HCPCS: 36415; 36600; 71045; 71275; 76937; 80048; 80053; 82728; 82803; 83605; 83615; 83735; 83880; 84145; 85018; 85025; 85379; 85384; 86140; 87040; 87081; 93005; 93306; 94640; 94760; 96374; 96375; 99285; G0378; J0696; J1100; J1650; J1940; J2405; J2920; J2930; J7030; Q9967